=== PATIENT | male | born 1975 | race Hispanic/Latino ===

== ENCOUNTER 2016-08-25 20:16 | Emergency (ER) | payer OTHER ==
[~2016-08-25] VITALS: Ht 182.9 cm; Wt 104.5 kg
[~2016-08-25 20:16] MED LIST: NO
[2016-08-25 20:25] VITALS: BP 155/94; PULSE 56; RESP 18; O2SAT 100
[2016-08-25 21:02] LABS: BASOPHILS % (AUTO) 0.2 % (0-3); EOSINOPHILS % (AUTO) 0.5 % (0-5); MONOCYTES % (AUTO) 5.9 % (4-12); Mean Corpuscular Volume 91.1 fL (81-100); NEUTROPHILS % (AUTO) 79.3 % (40-74); Platelet Count 278 bil/L (150-400)
--- NOTE | 2016-08-25 21:12 | ED.REPORT ---
HPI-Abd Pain M Under 40 Date of Service August 25, 2016 ED Provider: Dr. Lam Pt is an otherwise healthy 40 year old male who presents to the ED complaining of non-radiating upper abdominal pain onset 2 days ago. The pain is moderate to severe. He c/o associated subjective fever, chills, decreased appetite, and difficult sleeping secondary to the pain. His pain is exacerbated with eating and has worsened over time. He has taken OTC pain meds with no relief. Pt denies n/v/d. Pt still has his appendix and gallbladder. Nursing Notes Stated Complaint: ABDOMINAL PAIN Chief Complaint: Male Abdominal Pain Nursing Notes Reviewed: Yes Allergies: Coded Allergies: acetaminophen (Verified Allergy, Mild, Itching, 08/26/16) oxycodone (Verified Allergy, Mild, Itching, 08/26/16) Scheduled PRN Hydrocodone-Acetaminophen 5-325 mg (Hydrocodone-Acetaminophen 5-325 mg) 1 Each Tablet 1-2 TABLET PO Q6 PRN PRN For Mild Pain General Time Seen by MD: 21:12 Chief Complaint Abdominal pain Hx Obtained From: Patient Arrived By: Walk-in Sudden in Onset?: No Onset Occurred: 2 days ago Symptom Duration: Since onset Progression since Onset: Constant, Gradually worsening Location: : RUQ Quality: Painful Radiation: : Does not radiate Severity: Current: Moderate Severity: Maximum: Severe Exacerbated by: Eating Similar Sx Previous: No Past Medical History Past Medical History denies Denies: Congestive heart failure, Diabetes mellitus, Hypertension Past Surgical History Previous surgeries, but not identified. Pt still has appendix and gallbladder. Family History Father-migraines Smoking History Current Every Day Smoker Social History Has a brother Alcohol Use: Denies alcohol use Drug Use: Denies drug use Other Social History: Good social support Ambulatory Status Independent Review of Systems Constitutional: Reports: Chills, Fever (subjective) GI: Reports: Abdominal pain, Denies: Diarrhea, Nausea, Vomiting Complete sys rev & neg: except as marked. Physical Exam Initial Vital Signs Vital Signs (First) Date Time Temp Pulse Resp B/P Pulse Ox O2 Delivery O2 Flow Rate FiO2 08/25/16 20:25 36.4 56 18 155/94 100 Room Air Initial VS: Reviewed Head / Eyes: Atraumatic, Normocephalic, PERRL ENT: Mucous membranes moist, Conjunctiva normal, No scleral icterus Neck: Supple, Full range of motion Extremities: Vascular intact, Neuro intact Skin: Warm, Dry, No cyanosis Neurologic: Alert, Oriented, Nonfocal Psychiatric: Mood/affect normal, Behavior normal, Normal thought content General/Constitutional: Awake, Alert, Cooperative, Not toxic appearing Distress / Hydration: Positive: Distress moderate Appearance / Presentation: Positive: In pain (mod-severe), Uncomfortable Respiratory / Chest: Breath sounds NL, Breath sounds = bilat, No respiratory distress, No rales, No rhonchi, No wheezing, No stridor Cardiovascular: Heart rate NL, Regular rhythm, Heart sounds NL, No gallop, No murmurs, No rubs, Peripheral circulation NL Abdomen: Atraumatic, Soft, No rebound, No distention Tenderness/Guarding/Rebound: Positive: Guarding involuntary (RUQ), Tracy's sign positive, Tender RUQ... (Moderate) Back: Atraumatic, Inspection NL, Non-tender, No CVA tenderness Interpretation & Diagnostics EXAM: US abdomen, limited, right upper quadrant IMPRESSION: No ultrasound evidence of cholelithiasis or cholecystitis Transmitted by Jake Gillespie at 0018. Lab Results Interpretation Result Diagram: 08/25/16203408/25/162034 Test 08/25/16 20:35 08/25/16 21:00 08/25/16 22:20 White Blood Count 13.2th/mm3 (3.8-10.1) Red Blood Count 4.84mil/mm3 (4.40-5.80) Hemoglobin 15.0g/dL (13.8-17.2) Hematocrit 44.1% (41.0-50.0) Mean Corpuscular Volume 91.1fL (81-100) Mean Corpuscular Hemoglobin 31.0pg (27.0-35.0) Mean Corpuscular Hemoglobin Concent 34.0% (32.0-37.0) Red Cell Distribution Width 13.0% (12.3-15.4) Platelet Count 278bil/L (150-400) Neutrophils (%) (Auto) 79.3% (40-74) Lymphocytes (%) (Auto) 13.9% (14-46) Monocytes (%) (Auto) 5.9% (4-12) Eosinophils (%) (Auto) 0.5% (0-5) Basophils (%) (Auto) 0.2% (0-3) Sodium Level 140mEq/L (134-144) Potassium Level 4.3mEq/L (3.5-5.2) Chloride Level 99mEq/L (97-108) Carbon Dioxide Level 26mmol/L (18-29) Blood Urea Nitrogen 10mg/dL (6-20) Creatinine 0.66mg/dL (0.76-1.27) Estimat Glomerular Filtration Rate 144mL/min (>59) Glucose Level 121mg/dL (60-99) Lactic Acid Level 1.2mmol/L (0.4-2.0) Calcium Level 11.0mg/dL (8.5-10.1) Magnesium Level 1.8mg/dL (1.6-2.6) Total Bilirubin 0.5mg/dL (0.0-1.2) Aspartate Amino Transf (AST/SGOT) 13U/L (0-50) Alanine Aminotransferase (ALT/SGPT) 18U/L (0-44) Alkaline Phosphatase 94U/L (25-150) Total Protein 7.3g/dL (6.4-8.4) Albumin 4.3g/dL (3.4-5.0) Lipase 100U/L (13-60) Hold Rivera Top Tube Received (Received) Urine Color Yellow (YELLOW) Urine Appearance Clear (CLEAR,HAZY) Urine pH 7.0 (5.0-8.0) Urine Specific [place] 1.020 (1.003-1.035) Urine Protein Negativemg/dL (NEG,TRACE) Urine Glucose (UA) Negativemg/dL (NEGATIVE) Urine Ketones 15mg/dL (NEGATIVE) Urine Occult Blood Negative (NEGATIVE) Urine Nitrite Negative (NEGATIVE) Urine Bilirubin Negative (NEGATIVE) Urine Urobilinogen Normalmg/dL (NORMAL) Urine Leukocyte Esterase Negative (NEGATIVE) Urine RBC 0-2/hpf (0-2) Urine WBC 0-5/hpf (0-5) Urine Epithelial Cells Occasional/hpf (NONE-MOD) Urine Crystals Oxalic acid crystals (NONE Urine Bacteria None/hpf (NONE-FEW) Urine Hyaline Casts None/lpf (NONE) Urine Granular Casts Occasional (NONE SEEN) Urine Waxy Casts None seen (NONE SEEN) Urine Red Blood Cell Casts None seen (NONE SEEN) Urine White Blood Cell Casts None seen (NONE SEEN) Urine Mucus Present (None Seen) Urine Trichomonas None seen (NONE SEEN) Urine Yeast None (NONE SEEN) Urinalysis Comment None Urine Culture Reflexed Not indicated CT Abd / Pelvis Interpretation IMPRESSION: Probable tiny stone in the gallbladder Trasmitted to the ED by Jake Gillespie at 23:10 Study type: Abdominal CT IV contrast Interpretation / Wet Read by: Interpret - Radiologist Re-Eval/Medical Decision Med Decision/Clinical Course Otherwise healthy 40-year-old male presenting with severe right upper quadrant discomfort and a leukocytosis but a negative right upper quadrant ultrasound and negative CT. His pain and nausea were resolved with Dilaudid and Zofran. Discussed with him that since his vital signs and labs other than white count are normal and to imaging modalities are normal, he will be discharged home, but should return should he develop fevers or worsening pain. I advised that he follow-up with his PCP early next week. He may benefit from a HIDA scan in the future Re-Evaluation/Progress : Time of Eval: 00:19 Patient Status: Condition improved Re-Evaluation/Progress Note: Pt rechecked. Informed pt of plan for treatment. Pt understands and agrees with plan for treatment. F/U instructions and RTER warnings given. All questions addressed. Counseled Regarding: Diagnosis, Lab results, Need for follow-up, When/why to return to ED Patient Discharge & Departure Primary Impression: RUQ abdominal pain Additional Impressions: Leukocytosis Leukocytosis type: unspecified Qualified Code: D72.829 - Elevated white blood cell count, unspecified Nausea & vomiting Vomiting type: unspecified Vomiting Intractability: non-intractable Qualified Code: R11.2 - Nausea with vomiting, unspecified Ruled Out: Appendicitis, Pancreatitis, Cholecystitis Disposition: Home Discharge Condition All VS Reviewed: Yes Condition: Stable Patient Instructions: Acute Abdominal Pain (ED) Additional Instructions: Your evaluation today in the emergency department included an interview, physical exam, blood work, abdominal CT, and abdominal ultrasound. Other than an elevated white blood cell count we are unable to identify any other abnormalities. After receiving pain medication and nausea medication yourr symptoms improved. I am not certain what was causing yourr pain, however I do not believe it was anything dangerous. You should follow up with a medical professional on Saturday. Return to the Emergency Department if the pain returns or worsens. Referrals: Pooja Deshpande DO (PCP) Blas Attestation Portions of this note were transcribed by Clinton Malin and Jenae Kothari. I, Dr. Lam personally performed the history, physical exam and medical decision -making; I reviewed and confirmed the accuracy of the information in the transcribed note. Signed by: Clinton Malin and Blas Ferrer, 08/25/16 and 22:00 copies to: Pooja Deshpande Gary R DO August 25, 2016 21:12 Jenae Olsen August 25, 2016 21:23 CLINTON MALIN August 25, 2016 22:44
[2016-08-25 21:24] LABS: Magnesium 1.8 mg/dL (1.6-2.6)
[2016-08-25] MEDS ORDERED: Ondansetron 2 mg/mL 2 mL Inj IVPUSH ONE (21:30)
[2016-08-25] MEDS ORDERED: 0.9% Sodium Chloride 1,000 ML IV ONE (21:30)
[2016-08-25] MEDS ORDERED: Iohexol 300 mg/mL 30 mL Inj PO ONE (21:30)
[2016-08-25] MEDS: HYDROmorphone 1 mg/mL Inj IVPUSH PRN ×2 (21:51→22:32)
[2016-08-25 22:38] LABS: APPEARANCE,URINE CLEAR (CLEAR,HAZY); COLOR,URINE YELLOW (YELLOW); OCCULT BLOOD,URINE NEGATIVE (NEGATIVE); UROBILINOGEN,URINE NORMAL (NORMAL)
[2016-08-26] MEDS ORDERED: ONDA4TAB9 PO (00:31)
[2016-08-26] MEDS ORDERED: TRAM50TA2 PO (00:31)
[2016-08-26 00:37] VITALS: BP 131/90; PULSE 80; RESP 16; O2SAT 98
[2016-08-26 00:38] VITALS: BP 131/90; PULSE 80; RESP 16; O2SAT 98
--- NOTE | 2016-08-26 08:04 | DRSVH ---
PROCEDURE: US ABDOMEN, LIMITED ([id number]) INDICATIONS: RUQ pain, Leukocytosis, +murphys sign TECHNIQUE: Real-time focused scanning was performed of the abdomen, with image documentation. COMPARISON: None. FINDINGS: Normal gallbladder wall thickness. No pericholecystic fluid. No cholelithiasis. Positive so nographic Tracy's sign. IMPRESSION: 1. Ultrasound findings do not support acute cholecystitis. If there is continued clinical suspicion f or acute cholecystitis recommend a HIDA scan. 2. There are no discrepancies with the pulmonary report. Dictated by: Dyllan Cabrales M.D. on 08/26/2016 at 8:01 Approved by: Dyllan Cabrales M.D. on 08/26/2016 at 8:03
--- NOTE | 2016-08-26 09:58 | DRSVH ---
PROCEDURE: CT ABDOMEN AND PELVIS WITH CONTRAST ([id number]) INDICATIONS: RUQ abd pain, leukocytosis TECHNIQUE: After the administration of oral and intravenous contrast, 5 mm thick sections acquired from the diap hragms to the symphysis. 5 mm thick coronal and sagittal reformats were performed. For radiation do se reduction, the following was used: automated exposure control, adjustment of mA and/or kV accordi ng to patient size. COMPARISON: None. FINDINGS: Image quality: Excellent. ABDOMEN: Lung bases: Lung bases are clear. Heart size is normal. Solid organs: Fatty infiltration of an otherwise normal liver. No hepatic masses. Minimal cholelithia sis. Otherwise the gallbladder, pancreas, spleen, adrenal glands and kidneys are normal.. Peritoneum and bowel: Stomach, small bowel, and colon loops are normal in caliber and wall thickness . No free fluid or air. Nodes and vessels: No retroperitoneal or mesenteric adenopathy. Aorta and inferior vena cava are no rmal in caliber. Miscellaneous: No ventral hernias. PELVIS: Genitourinary: Bladder wall thickness is normal. Miscellaneous: No inguinal hernias or adenopathy. Bones: No suspicious bony lesions. No vertebral body compression fractures. IMPRESSION: 1. Minimal cholelithiasis with no CT evidence of acute cholecystitis. 2. Fatty infiltration of the liver. 3. There are no discrepancies with the preliminary report. Dictated by: Dyllan Cabrales M.D. on 08/26/2016 at 9:53 Approved by: Dyllan Cabrales M.D. on 08/26/2016 at 9:57
[2016-08-26] MEDS ORDERED: ASPI325T32 PO (15:07)
[2016-08-26] MEDS ORDERED: HYDR-4003 PO (16:11)
== END 2016-08-26 00:39 | disposition home or self-care (01) ==
LOC: SED 20:16
DX: R10.11 Right upper quadrant pain (principal); D72.829 Elevated white blood cell count, unspecified; R11.2 Nausea with vomiting, unspecified; R50.9 Fever, unspecified; R68.83 Chills (without fever); F50.89 Other specified eating disorder; F17.200 Nicotine dependence, unspecified, uncomplicated; Z88.6 Allergy status to analgesic agent; Z88.5 Allergy status to narcotic agent
CPT/HCPCS: 36415; 74177; 76705; 80053; 81000; 83605; 83690; 83735; 85025; 96361; 96374; 96375; 99285; J1170; J2405; J7030; Q9967

== ENCOUNTER 2016-08-26 13:18 | Observation (INO) | payer OTHER ==
[~2016-08-26] VITALS: Ht 182.9 cm; Wt 106.0 kg
[2016-08-26] VITALS (8 sets, daily range): BP systolic 138–146; BP diastolic 62–101; PULSE 52–82; RESP 9–24; O2SAT 92–100
[~2016-08-26 13:18] MED LIST changes: +ONDA4TAB9 PO; +TRAM50TA2 PO
[2016-08-26 14:11] LABS: BASOPHILS % (AUTO) 0.2 % (0-3); EOSINOPHILS % (AUTO) 0.5 % (0-5); Mean Corpuscular Hemoglobin 30.6 pg (27.0-35.0); Mean Corpuscular Volume 91.4 fL (81-100); NEUTROPHILS % (AUTO) 75.3 % (40-74); Platelet Count 269 bil/L (150-400)
--- NOTE | 2016-08-26 14:12 | ED.REPORT ---
HPI-Abd Pain M Under 40 Date of Service August 26, 2016 ED Provider: Carmelo Amos MD Patient is a 40 year old male who presents to the ED complaining of abdominal pain onset 3 days ago. Associated symptoms include pain that radiates into his back, nausea and one episode of vomiting after eating. Patient denies cough or dysuria. He reports that the pain is exacerbated by eating and has got progressively worse since yesterday. Patient was seen yesterday at the ED for the same complaint but was unable to sleep or keep down his medication last night. Nursing Notes Stated Complaint: ABDOMINAL PAIN Chief Complaint: Male Abdominal Pain Nursing Notes Reviewed: Yes (Locappy, ISpeak not reconciled) Allergies: Coded Allergies: acetaminophen (Verified Allergy, Mild, Itching, 08/26/16) oxycodone (Verified Allergy, Mild, Itching, 08/26/16) Scheduled PRN Aspirin (Aspirin) 325 Mg Tablet 325-650 MG PO DAILY PRN PRN For Pain Ondansetron ODT (Zofran ODT) 4 Mg Tablet 4 MG PO Q4H PRN PRN For Nausea Tramadol (Tramadol) 50 Mg Tablet 100 MG PO Q6H PRN PRN For Pain General Time Seen by MD: 14:00 Chief Complaint Abdominal pain Hx Obtained From: Patient Arrived By: Walk-in Sudden in Onset?: No Onset Occurred: 3 days ago Symptom Duration: Since onset Progression since Onset: Gradually worsening Location: : RUQ Quality: Painful Radiation: : Back Severity: Current: Moderate Associated with: Reports: Nausea, Vomiting, Denies: Dysuria Exacerbated by: Eating Recent Healthcare: No recent hospitalization, Recent doctor visit Similar Sx Previous: Yes Past Medical History Past Medical History denies Past Surgical History Previous surgeries, but not identified. Pt still has appendix and gallbladder. Family History Father-migraines Smoking History Current Every Day Smoker Social History Has a brother Alcohol Use: Denies alcohol use Drug Use: Denies drug use Other Social History: Good social support Ambulatory Status Independent Review of Systems Respiratory: Denies: Non-productive cough, Shortness of breath GI: Reports: Abdominal pain, Nausea, Vomiting Male: Denies Dysuria Musculoskeletal: Reports: Back pain Complete sys rev & neg: except as marked. Physical Exam Initial Vital Signs Vital Signs (First) Date Time Temp Pulse Resp B/P Pulse Ox O2 Delivery O2 Flow Rate FiO2 08/26/16 13:27 36.4 82 24 145/101 99 08/26/16 14:59 Room Air Initial VS: Reviewed, Vital signs normal General/Constitutional: Awake, Alert Appearance / Presentation: Positive: Uncomfortable Respiratory / Chest: Atraumatic, No respiratory distress Cardiovascular: Heart rate NL, Regular rhythm, Heart sounds NL Abdomen: Atraumatic, Soft Tenderness/Guarding/Rebound: Positive: Tender RUQ... positive for tracy's Back: Atraumatic, Full range of motion Head / Eyes: Atraumatic, Normocephalic, PERRL, EOMI Neurologic: Oriented X3, Speech NL, No motor deficits, No sensory deficits Upper Extremity / MS: Atraumatic, Full range of motion Lower Extremity / Pelvis / MS: Atraumatic, Full range of motion Skin: Atraumatic, Color NL, No rash, Warm, Dry Psychiatric: Affect NL, Mood NL Interpretation & Diagnostics Interpretation & Diagnostics: Please see imaging from yesterday's ED visit: CT scan and ultrasound of the abdomen both reviewed Lab Results Interpretation Result Diagram: 08/26/16 1345 08/26/16 1345 Test 08/26/16 13:45 White Blood Count 9.5th/mm3 (3.8-10.1) Red Blood Count 4.64mil/mm3 (4.40-5.80) Hemoglobin 14.2g/dL (13.8-17.2) Hematocrit 42.4% (41.0-50.0) Mean Corpuscular Volume 91.4fL (81-100) Mean Corpuscular Hemoglobin 30.6pg (27.0-35.0) Mean Corpuscular Hemoglobin Concent 33.5% (32.0-37.0) Red Cell Distribution Width 12.9% (12.3-15.4) Platelet Count 269bil/L (150-400) Neutrophils (%) (Auto) 75.3% (40-74) Lymphocytes (%) (Auto) 18.8% (14-46) Monocytes (%) (Auto) 5.0% (4-12) Eosinophils (%) (Auto) 0.5% (0-5) Basophils (%) (Auto) 0.2% (0-3) Sodium Level 136mEq/L (134-144) Potassium Level 4.4mEq/L (3.5-5.2) Chloride Level 98mEq/L (97-108) Carbon Dioxide Level 25mmol/L (18-29) Blood Urea Nitrogen 9mg/dL (6-20) Creatinine 0.71mg/dL (0.76-1.27) Estimat Glomerular Filtration Rate 132mL/min (>59) Glucose Level 122mg/dL (60-99) Calcium Level 9.7mg/dL (8.5-10.1) Magnesium Level 1.8mg/dL (1.6-2.6) Total Bilirubin 0.4mg/dL (0.0-1.2) Aspartate Amino Transf (AST/SGOT) 13U/L (0-50) Alanine Aminotransferase (ALT/SGPT) 15U/L (0-44) Alkaline Phosphatase 84U/L (25-150) Total Protein 7.2g/dL (6.4-8.4) Albumin 4.3g/dL (3.4-5.0) Lipase 19U/L (13-60) Lab Results Interpretation: CBC leukocytosis from yesterday's improved CMP, lipase, normal Re-Eval/Medical Decision Med Decision/Clinical Course 40-year-old healthy male no past medical history not on any medications who was seen yesterday in the emergency department for abdominal pain in the right upper quadrant who returns with ongoing and worsening right upper quadrant pain. The patient gives a history highly concerning for possible bladder disease - reports a sudden onset right upper quadrant pain, radiating the back, worse with eating that started 3 days ago. He was seen yesterday in a positive Tracy's, he had a positive ultrasonography Tracy's and a moderate leukocytosis, but ultrasound revealed a positive Tracy's did not reveal definitive findings of cholecystitis, and follow-up CT imaging also did not reveal definitive cause, although interestingly the CT imaging was read as positive for lithiasis involving ultrasound was read as negative. He went home yesterday, but has had worsening pain, was not able sleep, tried to eat this morning but was unable to and vomited, could not keep down the pain medicine and the right upper quadrant pain was worsened-surgery return to the emergency department. Clinically appears uncomfortable, and again has a positive Tracy's the right upper quadrant. He does not have any midepigastric discomfort. An IV is placed receiving titrated to pain medicines. Labs are still normal. However his clinical exams highly concerning and suspicious for gallbladder disease. Given his presentation, and symptoms are highly suggestive of an terms of the clinical picture, I discussed the case with . Mesfin is reviewed his imaging from yesterday, as often the patient's surgical intervention in this setting. The patient is indeed interested and is being admitted for continued management. At this point the patient has clinical cholecystitis. Source of Hx: Old records Re-Evaluation/Progress : Time of Eval: 14:39 Re-Evaluation/Progress Note: Discussed plan for admit. The patient understands and agrees to the plan. All questions were addressed. Consultation : Referral / Consult Name: Jose Toure MD Consulted With: Surgeon Call Returned at: 14:20 Carpenter Repair: Will see patient, Agrees with eval, Agrees with plan Differential Diagnosis: Positive: Cholecystitis, Negative: Acute coronary syndrome, Appendicitis, Esophageal rupture, Gun shot wound abdomen, Pancreatitis, Peritonitis, Porphyria, Pyelonephritis, Sickle cell crisis, Stab wound abdomen, Trauma, abdominal, Urinary obstruction, Urolithiasis, Volvulus Counseled Regarding: Diagnosis, Lab results, Need for admission Patient Discharge & Departure Primary Impression: Cholecystitis Disposition: ADMITTED TO HOSPITAL Discharge Condition All VS Reviewed: Yes Condition: Stable Referrals: Pooja Deshpande DO (PCP) Blas Attestation Portions of this note were transcribed by Marilu Carlin. I, Dr. Amos personally performed the history, physical exam and medical decision-making; I reviewed and confirmed the accuracy of the information in the transcribed note. Signed by: Blas Butler, 08/26/16 and 1430 copies to: Pooja Deshpande Matthew F MD August 26, 2016 14:12 Nova Carlin August 26, 2016 14:21
[2016-08-26 14:20] LABS: Magnesium 1.8 mg/dL (1.6-2.6)
[2016-08-26] MEDS ORDERED: Ondansetron 2 mg/mL 2 mL Inj IVPUSH ONE (14:20)
[2016-08-26] MEDS ORDERED: 0.9% Sodium Chloride 1,000 ML IV ONE (14:20)
[2016-08-26] MEDS: HYDROmorphone 0.5 mg/0.5 mL iSecure Syringe IVPUSH PRN ×2 (14:43→15:00)
[2016-08-26] MEDS ORDERED: ASPI325T32 PO (15:07)
--- NOTE | 2016-08-26 15:18 | PCM.HPANE ---
Patient Data Surgeon Admitting Provider:Jose Toure MD Attending Provider:Jose Toure MD Primary Care Physician:Pooja Deshpande DO Other Provider: Reason for Visit Cholycystitis Ht/WT & BMI Height (Feet): 6 Height (Inches): 0 Weight (Kilograms): 104.55 Body Mass Index Allergies Coded Allergies: acetaminophen (Verified Allergy, Mild, Itching, 08/26/16) oxycodone (Verified Allergy, Mild, Itching, 08/26/16) Past Anesthesia History Anesthesia History: Denies:: Abnormal Airway, Anesthesia Reactions, Difficult Intubation, Fam Anesthesia Reaction, Fam Malignant Hypertherm, Malignant Hyperthermia Diabetes History Hx Diabetes?: No Medications Active Scripts Hydrocodone-Acetaminophen 5-325 mg 1 Each Tablet1-2 Tablet PO Q6 PRN For Mild Pain #20 TABLET Prov:Jose Toure MD 08/26/16 Discontinued Reported Medications Aspirin 325 Mg [id number] Mg PO DAILY PRN For Pain #1 BOTTLE 08/26/16 [No] No Conflict Check 12/23/12 Discontinued Scripts Tramadol 50 Mg [id number] Mg PO Q6H PRN For Pain #15 TABLET Ref 0 Prov:Arthur Lam DO 08/26/16 Ondansetron ODT (Zofran ODT)4 Mg Tablet4 Mg PO Q4H PRN For Nausea #14 TABLET Prov:Arthur Lam DO 08/26/16 History History of ENT Problems?: No HEENT History: Denies:: Abnormal Airway Cataracts Difficult Intubation Dysphagia Glaucoma Hearing Problem Sinus Problem TMJ Denture Type: None Teeth Condition: Within Normal Limits Hx of Heart Problems?: No Cardiovascular History: Denies:: Congestive Heart Failure Hypertension Hx of Respiratory Problem?: No Respiratory History: Denies:: Tuberculosis Hx Neurologic Problems?: No Hx of GI Problems?: No Hx of Problems?: No HX of Peritoneal Dialysis: No Hx Musculoskeletal Problems?: No Hx of Psycho/Social Problems?: No Hx Surgeries?: No Hx Diabetes: No Hx Alcohol Use: NoHx Substance Use: No Smoking Status: Current Every Day Smoker Have You Smoked inLast 12 mo: Yes Stop/Bang Risk Assessment Category Category 1A: Patient has history of documented sleep apnea, and HAS NOT received any narcotic, sedative or anesthesia administration during this stay. Category 1B: Patient has history of documented sleep apnea, and HAS received any narcotic , sedative or anesthesia administration during this stay Category 2: Patient has SUSPECTED Obstructive Sleep Apnea, and HAS received any narcotic , sedative or anesthesia administration during this stay. Category 3: Patient has SUSPECTED Obstructive Sleep Apnea and HAS NOT received narcotic, sedative or anesthesia administration during this stay. Category 4: Outpatient in Procedural Areas with known sleep apnea or who screen positive for High Risk via the STOP/BANG questionnaire. Exam Exam Vital Signs Vital Signs Date Time Temp Pulse Resp B/P Pulse Ox O2 Delivery O2 Flow Rate FiO2 08/26/16 14:59 60 18 145/83 99 Room Air 08/26/16 13:27 36.4 82 24 145/101 99 General Appearance: Alert, Oriented X3, Cooperative, Moderate Distress HEENT/AIRWAY: MP 2, Neck Movement (from), Mouth Opening (wnl) Lungs: Clear to Auscultation Heart: Exam Unremarkable Meds/Labs/Diagnostics Admission Meds Current Medications Ondansetron HCl 4 mg 4 mg ONCE ONCE IVPUSH Last administered on 08/26/16 14: 41; Start 08/26/16 at 14:20; Stop 08/26/16 at 14:21; Status DC Sodium Chloride (Normal Saline) 1,000 ml @ 0 mls/hr Q0M ONCE IV Last administered on 08/26/16 14:40; Start 08/26/16 at 14:20; Stop 08/26/16 at 14:21 ; Status DC Labs Test 08/26/16 13:45 White Blood Count 9.5th/mm3 (3.8-10.1) Red Blood Count 4.64mil/mm3 (4.40-5.80) Hemoglobin 14.2g/dL (13.8-17.2) Hematocrit 42.4% (41.0-50.0) Mean Corpuscular Volume 91.4fL (81-100) Mean Corpuscular Hemoglobin 30.6pg (27.0-35.0) Mean Corpuscular Hemoglobin Concent 33.5% (32.0-37.0) Red Cell Distribution Width 12.9% (12.3-15.4) Platelet Count 269bil/L (150-400) Neutrophils (%) (Auto) 75.3% (40-74) Lymphocytes (%) (Auto) 18.8% (14-46) Monocytes (%) (Auto) 5.0% (4-12) Eosinophils (%) (Auto) 0.5% (0-5) Basophils (%) (Auto) 0.2% (0-3) Sodium Level 136mEq/L (134-144) Potassium Level 4.4mEq/L (3.5-5.2) Chloride Level 98mEq/L (97-108) Carbon Dioxide Level 25mmol/L (18-29) Blood Urea Nitrogen 9mg/dL (6-20) Creatinine 0.71mg/dL (0.76-1.27) Estimat Glomerular Filtration Rate 132mL/min (>59) Glucose Level 122mg/dL (60-99) Calcium Level 9.7mg/dL (8.5-10.1) Magnesium Level 1.8mg/dL (1.6-2.6) Total Bilirubin 0.4mg/dL (0.0-1.2) Aspartate Amino Transf (AST/SGOT) 13U/L (0-50) Alanine Aminotransferase (ALT/SGPT) 15U/L (0-44) Alkaline Phosphatase 84U/L (25-150) Total Protein 7.2g/dL (6.4-8.4) Albumin 4.3g/dL (3.4-5.0) Lipase 19U/L (13-60) Plan Impression Patient chart reviewed, patient interviewed and anesthestic plan with risks, benefits, and alternatives discussed, and informed consent obtained. ASA Physical Status: ASA2 Mod Systemic Disease Anesthetic Plan: GA Bene/Risks/Altern/Consents: Yes HP Complete Prior to Induction: Yes Mike Cavazos MD August 26, 2016 15:18
[2016-08-26] MEDS ORDERED: Lactated Ringer's 1,000 ML IV ONE ×2 (15:20→16:00)
--- NOTE | 2016-08-26 15:23 | PCM.HPANE ---
Patient Data Surgeon Admitting Provider:Jose Toure MD Attending Provider:Jose Toure MD Primary Care Physician:Pooja Deshpande DO Other Provider: Reason for Visit Cholycystitis Ht/WT & BMI Height (Feet): 6 Height (Inches): 0 Weight (Kilograms): 104.55 Body Mass Index Allergies Coded Allergies: acetaminophen (Verified Allergy, Mild, Itching, 08/26/16) oxycodone (Verified Allergy, Mild, Itching, 08/26/16) Diabetes History Hx Diabetes?: No Medications Active Scripts Hydrocodone-Acetaminophen 5-325 mg 1 Each Tablet1-2 Tablet PO Q6 PRN For Mild Pain #20 TABLET Prov:Jose Toure MD 08/26/16 Discontinued Reported Medications Aspirin 325 Mg [id number] Mg PO DAILY PRN For Pain #1 BOTTLE 08/26/16 [No] No Conflict Check 12/23/12 Discontinued Scripts Tramadol 50 Mg [id number] Mg PO Q6H PRN For Pain #15 TABLET Ref 0 Prov:Arthur Lam DO 08/26/16 Ondansetron ODT (Zofran ODT)4 Mg Tablet4 Mg PO Q4H PRN For Nausea #14 TABLET Prov:Arthur Lam DO 08/26/16 History Cardiovascular History: Denies:: Congestive Heart Failure Hypertension Respiratory History: Denies:: Tuberculosis Hx Surgeries?: No Hx Diabetes: No Hx Alcohol Use: NoHx Substance Use: No Smoking Status: Current Every Day Smoker Have You Smoked inLast 12 mo: Yes Stop/Bang Risk Assessment Category Category 1A: Patient has history of documented sleep apnea, and HAS NOT received any narcotic, sedative or anesthesia administration during this stay. Category 1B: Patient has history of documented sleep apnea, and HAS received any narcotic , sedative or anesthesia administration during this stay Category 2: Patient has SUSPECTED Obstructive Sleep Apnea, and HAS received any narcotic , sedative or anesthesia administration during this stay. Category 3: Patient has SUSPECTED Obstructive Sleep Apnea and HAS NOT received narcotic, sedative or anesthesia administration during this stay. Category 4: Outpatient in Procedural Areas with known sleep apnea or who screen positive for High Risk via the STOP/BANG questionnaire. Exam Exam Vital Signs Vital Signs Date Time Temp Pulse Resp B/P Pulse Ox O2 Delivery O2 Flow Rate FiO2 08/26/16 14:59 60 18 145/83 99 Room Air 08/26/16 13:27 36.4 82 24 145/101 99 Meds/Labs/Diagnostics Admission Meds Current Medications Ondansetron HCl 4 mg 4 mg ONCE ONCE IVPUSH Last administered on 08/26/16 14: 41; Start 08/26/16 at 14:20; Stop 08/26/16 at 14:21; Status DC Sodium Chloride (Normal Saline) 1,000 ml @ 0 mls/hr Q0M ONCE IV Last administered on 08/26/16 14:40; Start 08/26/16 at 14:20; Stop 08/26/16 at 14:21 ; Status DC Labs Test 08/26/16 13:45 White Blood Count 9.5th/mm3 (3.8-10.1) Red Blood Count 4.64mil/mm3 (4.40-5.80) Hemoglobin 14.2g/dL (13.8-17.2) Hematocrit 42.4% (41.0-50.0) Mean Corpuscular Volume 91.4fL (81-100) Mean Corpuscular Hemoglobin 30.6pg (27.0-35.0) Mean Corpuscular Hemoglobin Concent 33.5% (32.0-37.0) Red Cell Distribution Width 12.9% (12.3-15.4) Platelet Count 269bil/L (150-400) Neutrophils (%) (Auto) 75.3% (40-74) Lymphocytes (%) (Auto) 18.8% (14-46) Monocytes (%) (Auto) 5.0% (4-12) Eosinophils (%) (Auto) 0.5% (0-5) Basophils (%) (Auto) 0.2% (0-3) Sodium Level 136mEq/L (134-144) Potassium Level 4.4mEq/L (3.5-5.2) Chloride Level 98mEq/L (97-108) Carbon Dioxide Level 25mmol/L (18-29) Blood Urea Nitrogen 9mg/dL (6-20) Creatinine 0.71mg/dL (0.76-1.27) Estimat Glomerular Filtration Rate 132mL/min (>59) Glucose Level 122mg/dL (60-99) Calcium Level 9.7mg/dL (8.5-10.1) Magnesium Level 1.8mg/dL (1.6-2.6) Total Bilirubin 0.4mg/dL (0.0-1.2) Aspartate Amino Transf (AST/SGOT) 13U/L (0-50) Alanine Aminotransferase (ALT/SGPT) 15U/L (0-44) Alkaline Phosphatase 84U/L (25-150) Total Protein 7.2g/dL (6.4-8.4) Albumin 4.3g/dL (3.4-5.0) Lipase 19U/L (13-60) Plan Impression Patient chart reviewed, patient interviewed and anesthestic plan with risks, benefits, and alternatives discussed, and informed consent obtained. Mike Cavazos MD August 26, 2016 15:23
[2016-08-26] MEDS ORDERED: Dextrose 5% Lactated Ringer's 1,000 ML IV SCH (16:04)
[2016-08-26] MEDS ORDERED: Ondansetron 2 mg/mL 2 mL Inj IVPUSH PRN ×2 (16:05→16:30)
[2016-08-26] MEDS ORDERED: oxyCODONE-Acetamin 5-325 mg Tablet PO PRN (16:05)
--- NOTE | 2016-08-26 16:10 | PCM.DISURG ---
Surgical Discharge Instruction Date of Service August 26, 2016 Dates of Hospitalization Date of Hospital Admission August 26, 2016 at 14:59 Providers Admitting Physician: Jose Toure MD Primary Care Physician: Pooja Deshpande DO Attending Physician: Jose Toure MD Discharge Diagnosis Discharge Diagnosis gallstones Diet Discharge Diet: No restrictions Activity Discharge Activity-General: Be up and about, Balance rest and activity, No driving while taking narcotic Dressing and Incisional Care Dressing Care: Allow Steri Stripes to fall off, Remove outer dressing after 24 hrs Hygiene: May shower, NO bathtub, hot tub or whirlpool Follow Up Plan Follow Up Plan f/u surg PA 3-4 weeks Call your provider for: Fever, Chills, Increasing abdominal pain, Nausea, Vomiting Jose Toure MD August 26, 2016 16:10
[2016-08-26] MEDS ORDERED: HYDR-4003 PO (16:11)
[2016-08-26] MEDS ORDERED: Bupivacaine-MPF 0.25%/EPI 30 mL Inj INFILTRATE ONE (16:28)
[2016-08-26] MEDS ORDERED: Labetalol 5 mg/mL 4 mL Inj IV PRN (16:30)
[2016-08-26] MEDS ORDERED: Atropine 0.4 mg/mL Inj IVPUSH PRN (16:30)
[2016-08-26] MEDS ORDERED: Phenylephrine 10,000 mCg/mL Inj IVPUSH PRN (16:30)
[2016-08-26] MEDS ORDERED: EPHEDrine Sulfate 50 mg/mL Inj IVPUSH PRN (16:30)
[2016-08-26] MEDS ORDERED: Lactated Ringer's 500 ML IV PRN (16:30)
[2016-08-26] MEDS ORDERED: Lactated Ringer's 1,000 ML IV SCH (16:30)
[2016-08-26] MEDS ORDERED: Dexamethasone 4 mg/mL Inj IVPUSH PRN (16:30)
[2016-08-26] MEDS ORDERED: hydrALAZINE 20 mg/mL Inj IVPUSH PRN (16:30)
--- NOTE | 2016-08-26 16:41 | CONS ---
[address] [address] CONSULTATION REPORT PATIENT: LARISA SUNG : 1975 MR#: [id number] ADMIT: 08/26/2016 JOB ID: [id number] DATE OF SERVICE: 08/26/2016 REQUESTED BY: Carmelo Amos MD regarding further evaluation and management of possible cholecystitis. HISTORY OF PRESENT ILLNESS: The patient is a 40-year-old man who comes in today with complaint of persistent right upper quadrant abdominal pain. He tells me that the pain began three days ago. He cannot think of any precipitating factors. He does not remember that it was particularly associated with a meal. He has never had this pain before. The pain persisted and intensified to the point where he came into the emergency department yesterday. At that time, he was found to have a mild leukocytosis of 13.2. His LFTs were unremarkable. His lipase was mildly elevated at 100. An ultrasound of the abdomen was obtained which showed normal gallbladder wall thickness with no pericholecystic fluid and no cholelithiasis. He did, however, have a positive sonographic Tracy sign. A CT scan was subsequently obtained which, however, did show some cholelithiasis but no other abnormalities. He was therefore discharged from the emergency department. However, his pain has persisted and has been accompanied by nausea and vomiting as well as fevers, chills and night sweats, prompting him to return to the emergency department today. At this point, his leukocytosis has resolved and is now 9.5. His lipase is also better at 19. His LFTs and bilirubin remained within normal limits. I was consulted regarding further evaluation and management. PAST MEDICAL HISTORY: None. MEDICATIONS: None. ALLERGIES: No known drug allergies. PAST SURGICAL HISTORY: He had a head laceration repaired as a child. FAMILY HISTORY: Family history is reviewed and significant for some kind of gallbladder disease in his brother, but he has not had his gallbladder removed. SOCIAL HISTORY: The patient lives in [place], he currently is unemployed but previously worked in construction and as a farmworker. He smokes 1/2 a pack of cigarettes per day and occasionally drinks alcohol. REVIEW OF SYSTEMS: Full review of systems is obtained and as per the HPI and otherwise negative. PHYSICAL EXAMINATION: Vital signs: He has remained afebrile since this visit. His heart rate is currently 60 beats per minute. Blood pressure is 145/83, satting 99% on room air with a respiratory rate of 18 breaths per minute. In general, he appears mildly uncomfortable but in no acute distress. Cardiovascular: He has a regular rate and rhythm. No appreciated murmurs, rubs, or gallops. Pulmonary: Lungs clear to auscultation bilaterally. Vascular: There is no carotid bruit. Neck has no thyromegaly. Lymph: He has no cervical lymphadenopathy. GI: His abdomen is soft, nondistended. He has focal tenderness to palpation in the right upper quadrant with a positive Tracy sign. Extremities: Warm without significant edema. Skin is warm without rash. Neuro is grossly intact. Psych: Pleasant and appropriate. ASSESSMENT AND PLAN: This is a 40-year-old man with persistent right upper quadrant abdominal pain with possible cholelithiasis seen on CT but not seen on ultrasound. There is some uncertainty regarding the possible cholelithiasis. However, I discussed the images with the reading radiologist and he does believe that there are some small stones in the gallbladder. Given his history, his symptoms, and the presence of gallbladder stones, this most likely represents early acute cholecystitis. I recommend laparoscopic cholecystectomy. The technical and convalescent aspects of this procedure as well as potential risks and complications were reviewed with the patient. He understands and wishes to proceed. We will go for this as soon as the operating room is available.
[2016-08-26] MEDS: fentaNYL-PF 50 mCg/mL 2 mL Inj IVPUSH PRN ×2 (17:09→17:37)
--- NOTE | 2016-08-26 17:09 | PCM.ANEP1 ---
Post Anesthesia PACU Phase 1 Assessment Vital Signs Vital Signs Date Time Temp Pulse Resp B/P Pulse Ox O2 Delivery O2 Flow Rate FiO2 08/26/16 14:59 60 18 145/83 99 Room Air 08/26/16 13:27 36.4 82 24 145/101 99 Anesthetic Administered: GA Level of Alertness: Awake, talking EDMONDSON's with Equal Strength: Yes Pain: Yes Pain Scale Score: 6 Nausea or Vomiting: No CV Function & Hydration Stable: Yes Airway Device: Lungs: Normal Air Movement PACU Phase 2 Assessment Complications: No Follow up Care: No Patient Instructions Provided: N/A Mike Cavazos MD August 26, 2016 17:08
[2016-08-26] MEDS: HYDROmorphone 1 mg/mL Inj IVPUSH PRN ×3 (17:12→17:52)
--- NOTE | 2016-08-26 17:20 | OP ---
[address] [address] OPERATIVE REPORT PATIENT: LARISA SUNG : 1975 MR#: [id number] ADMIT: 08/26/2016 JOB ID: [id number] DATE OF SURGERY: 08/26/2016 ANESTHESIA: General. PREOPERATIVE DIAGNOSIS(ES): Acute cholecystitis. POSTOPERATIVE DIAGNOSIS(ES): Acute cholecystitis. OPERATIVE PROCEDURE: Laparoscopic cholecystectomy. SURGEON: Dr. Jose Toure. IRRIGATION SPECIALIST: Jorge Alberto Quiros PA-C (the catering administrative assistant was required for the safe and timely completion of this case). COMPLICATIONS: None. ESTIMATED BLOOD LOSS: Less than 5 mL. CONDITION: Satisfactory. SPECIMEN: Gallbladder. FINDINGS: The gallbladder appeared unremarkable without significant wall thickening, edema or inflammation. INDICATIONS/SIGNIFICANT HISTORY: The patient is a 40-year-old man who three days ago developed right upper quadrant abdominal pain. The pain persisted and worsened, prompting him to come to the emergency department yesterday. An ultrasound was obtained which was read as normal. CT scan was then obtained which showed reported cholelithiasis. The patient was discharged home but then presented again today with ongoing pain. I reviewed the images with the radiologist and he felt that there were stones. Given the patient had ongoing pain and tenderness in his right upper quadrant with positive Tracy sign, I recommended laparoscopic cholecystectomy. OPERATIVE TECHNIQUE: The patient was taken into the operating room and placed in the supine position. General anesthesia was administered and the abdomen was prepped and draped in the standard surgical fashion. A procedural pause was performed. Entry was gained into the abdomen through a supraumbilical incision using a 10 mm Optiview trocar. Pneumoperitoneum was achieved without complication. Local anesthetic was injected, followed by insertion of 5 mm ports in the subxiphoid as well as two in the right upper quadrant. Gallbladder was grasped and retracted cephalad. Dissection was begun to identify the cystic artery and cystic duct. The base of the gallbladder was elevated off the cystic plate, and the cystic artery was circumferentially dissected free and then clipped with a single clip taken with electrocautery. I then worked dissection down the infundibulum to the cystic duct and placed four clips and transected between them sharply. The remainder of the dissection of the gallbladder off the cystic plate was then completed and the gallbladder removed through the umbilical port site. Fascia there was closed with 0 PDS suture with a laparoscopic suture passer. The surgical bed was inspected and found to be completely hemostatic. The lateral ports were removed under direct visualization followed by release of pneumoperitoneum and removal of the remaining port. Skin was closed using 4-0 Monocryl. The entire procedure was well tolerated without complication.
--- NOTE | 2016-08-26 19:28 | NUR ---
Post op Pt arrived to unit at 1800 on gurney and complete slide was needed. Pt stated "I can't move right now." Drowsy, but able to answer all questions and oriented x 3. Pt had not been able to call anyone to pick him up, so he was transferred to his room with the understanding that he could possibly go home tonight if he met all the criteria. Pt having pain 7/10, medication just given in PACU. Pt was on 2L NC, but able to wean off to RA. IV connected to D5LR. VSS, EDMONDSON. Warm blanket given and oriented to room and call light. Bed in low, continue to monitor.
[2016-08-26] MEDS: HYDROcodone-APAP 5-325 mg Tablet PO PRN ×2 (20:04→20:28)
[2016-08-26] MEDS ORDERED: fentaNYL-PF 50 mCg/mL 2 mL Inj ONE (20:28)
[2016-08-26] MEDS ORDERED: Neostigmine 1 mg/mL 10 mL Inj ONE (20:28)
[2016-08-26] MEDS ORDERED: Rocuronium 10 mg/mL 5 mL Inj ONE (20:28)
[2016-08-26] MEDS ORDERED: Ondansetron 2 mg/mL 2 mL Inj ONE (20:28)
[2016-08-26] MEDS ORDERED: Glycopyrrolate 0.2 MG/ML 1mL Inj ONE (20:28)
[2016-08-26] MEDS ORDERED: Propofol 10,000 mCg/mL 20 mL Inj ONE (20:28)
--- NOTE | 2016-08-26 21:59 | NUR ---
Discharge Pt ambulated around hallway, passed gas, voided, and tolerated PO fluids and jello without nausea. Pain controlled down to a 2/10 with 2 tabs Vicodin by the time of discharge. Discharge instructions reviewed with and repeated back by pt. IV removed, pharmacy resources provided, pt DC'd with all of personal belongings and scripts in company of family member.
--- NOTE | 2016-08-27 13:03 | PCM.DC.SUR ---
Discharge Summary Date of Service: August 27, 2016 Date of Hospital Admission: August 26, 2016 at 14:59 Date of Operation(s): August 26, 2016 Date of Discharge: August 26, 2016 Diagnosis at Time of Discharge gallstones Problems: (1) RUQ abdominal pain Status: Acute ICD Code: R10.11 Operation Laparoscopic cholecystectomy Brief History and Physical: The patient is a 40-year-old man who comes in today with complaint of persistent right upper quadrant abdominal pain. He tells me that the pain began three days ago. He cannot think of any precipitating factors. He does not remember that it was particularly associated with a meal. He has never had this pain before. The pain persisted and intensified to the point where he came into the emergency department yesterday. At that time, he was found to have a mild leukocytosis of 13.2. His LFTs were unremarkable. His lipase was mildly elevated at 100. An ultrasound of the abdomen was obtained which showed normal gallbladder wall thickness with no pericholecystic fluid and no cholelithiasis. He did, however, have a positive sonographic Tracy sign. A CT scan was subsequently obtained which, however, did show some cholelithiasis but no other abnormalities. He was therefore discharged from the emergency department. However, his pain has persisted and has been accompanied by nausea and vomiting as well as fevers, chills and night sweats, prompting him to return to the emergency department today. At this point, his leukocytosis has resolved and is now 9.5. His lipase is also better at 19. His LFTs and bilirubin remained within normal limits. Vital signs: He has remained afebrile since this visit. His heart rate is currently 60 beats per minute. Blood pressure is 145/83, satting 99% on room air with a respiratory rate of 18 breaths per minute. In general, he appears mildly uncomfortable but in no acute distress. Cardiovascular: He has a regular rate and rhythm. No appreciated murmurs, rubs, or gallops. Pulmonary: Lungs clear to auscultation bilaterally. Vascular: There is no carotid bruit. Neck has no thyromegaly. Lymph: He has no cervical lymphadenopathy. GI: His abdomen is soft, nondistended. He has focal tenderness to palpation in the right upper quadrant with a positive Tracy sign. Extremities: Warm without significant edema. Skin is warm without rash. Neuro is grossly intact. Psych: Pleasant and appropriate. Consultants: None Hospital Course: The patient was admitted for operative management of persistent right upper quadrant abdominal pain and was taken to the operating room for laparoscopic cholecystectomy. Please refer to the operative report for further details of the operation. The patient tolerated the procedure well and was transferred to his hospital room where he remained until discharge later in the same day. At time of discharge, the patient was able to ambulate around hallway, pass gas, void, and he tolerated oral fluids and jello without nausea. Pain was controlled down to a 2/10 with 2 tabs Vicodin and he was then discharge to home. Pathology: pending Disposition: Home in good condition Follow-up Plan: Discharge Diet: No restrictions Discharge Activity-General: Be up and about, Balance rest and activity, No driving while taking narcotic Dressing Care: Allow Steri Stripes to fall off, Remove outer dressing after 24 hrs Hygiene: May shower, NO bathtub, hot tub or whirlpool Follow Up Plan f/u surgery PA 3-4 weeks Call your provider for: Fever, Chills, Increasing abdominal pain, Nausea, Vomiting Hydrocodone-Acetaminophen 5-325 mg (Hydrocodone-Acetaminophen 5-325 mg) 1 Each Tablet 1-2 TABLET PO Q6 PRN PRN For Mild Pain copies to: Pooja Deshpande Samuel L PA-C August 27, 2016 13:03 Hospital Course: The patient was admitted for operative management of persistent abdominal pain and was taken to the operating room for laparoscopic cholecystectomy. Please refer to the operative report for further details of the operation. The patient tolerated the procedure well and was transferred to his hospital room where he remained until discharge later in the same day. Hydrocodone-Acetaminophen 5-325 mg (Hydrocodone-Acetaminophen 5-325 mg) 1 Each Tablet 1-2 TABLET PO Q6 PRN PRN For Mild Pain Alex Quiros PA-C August 27, 2016 13:03
--- NOTE | 2016-08-30 14:12 | PATH ---
SURGICAL PATHOLOGY Attending Physician:Jose Toure MD CASE STATUS: Signed Out PATIENT NAME: LARISA SUNG PID: [id number] : 1975 DATE COLLECTED:08/26/2016 00:00 SPECIMEN: Gallbladder CLINICAL HISTORY: CHOLECYSTITIS 1. GALLBLADDER FINAL DIAGNOSIS: 1.GALLBLADDER: GALLBLADDER WITH NO PATHOLOGIC ALTERATIONS. Negative for dysplasia and malignancy. No stones identified in specimen. ICD10 R10.13 GROSS DESCRIPTION: The specimen is received in one formalin filled container labeled with the patient's name, sublabeled "gallbladder" and consists of an intact 8.0 x 4.0 x 4.0 CM gallbladder. The serosa is smooth. The wall is 0.2-0.3 CM in thickness. The mucosa is a dark green in color. The lumen contains dark green thick mucoid material, and no calculi are noted. Foreign Agent sections are submitted in one cassette. 08/28/2016 DAC MICRO DESCRIPTION: See diagnosis. ICD-9 CODES: CPT CODES: 1: 06882 Electronically Signed Out Arianne Nguyen MD [facility] [address], [place] [address] Technical component performed at [facility], [facility] [address], [place], [address]
== END 2016-08-26 20:29 | disposition home or self-care (01) ==
LOC: SED 13:18 → OSC 14:59
PROVIDERS: ADMIT General Practice; ATTEND General Practice
DX: K81.9 Cholecystitis, unspecified (principal); F17.200 Nicotine dependence, unspecified, uncomplicated; Z79.82 Long term (current) use of aspirin; Z88.6 Allergy status to analgesic agent; Z88.5 Allergy status to narcotic agent
CPT/HCPCS: 36415; 47562; 80053; 83690; 83735; 85025; 88304; 94640; 96374; 96375; 99285; G0378; J1170; J2250; J2405; J2710; J3010; J7030; J7120